=== PATIENT | female | born 1980 | race Caucasian/White ===

== ENCOUNTER → 2019-09-21 | Outpatient (CLI) | payer MEDICAID, SELFPAY ==
[~2019-09-21] MED LIST: ASPI-1497 PO; CALCIUM; FOLIC ACID; PREN1TAB78 PO
== END | disposition home or self-care (01) ==
LOC: LAB 15:07
PROVIDERS: ATTEND Obstetrics & Gynecology
DX: Z11.59 Encounter for screening for other viral diseases (principal); Z34.93 Encounter for supervision of normal pregnancy, unspecified, third trimester; Z3A.39 39 weeks gestation of pregnancy
CPT/HCPCS: C9803; U0003

== ENCOUNTER 2019-09-25 06:06 | Inpatient (IN) | payer MEDICAID ==
[~2019-09-25] VITALS: Ht 157.5 cm; Wt 72.1 kg
[2019-09-25] MEDS ORDERED: DEXT 5%/LR + PITOCIN 20UNITS/L 1,000 ML IV SCH (06:32)
[2019-09-25] MEDS ORDERED: METHYLERGONOVINE MALEATE 0.2 MG/ML IM PRN (06:45)
[2019-09-25] MEDS ORDERED: NALOXONE HCL 0.4 MG/ML 1ML VIAL IM PRN (06:45)
[2019-09-25] MEDS ORDERED: CARBOPROST TROMETHAMINE 250 MCG/ML AMPUL IM PRN (06:45)
[2019-09-25] MEDS ORDERED: MISOPROSTOL 200MCG TABLET VG SCH (07:00)
[2019-09-25] MEDS ORDERED: FOLIC ACID (07:00)
[2019-09-25] MEDS ORDERED: CALCIUM (07:00)
[2019-09-25] MEDS ORDERED: ASPI-1497 PO (07:00)
[2019-09-25] MEDS ORDERED: PREN1TAB78 PO (07:00)
[2019-09-25] MEDS ORDERED: CITRIC ACID/SODIUM CITRATE SOLN 30ML UDC PO SCH (07:00)
[2019-09-25] MEDS ORDERED: MORPHINE SULFATE/PF 1MG/ML 10ML AMP ONE (07:04)
[2019-09-25] MEDS ORDERED: ONDANSETRON HCL 4MG/2ML INJ ONE (07:04)
[2019-09-25] MEDS ORDERED: FENTANYL CITRATE/PF 50MCG/ML 2ML VIAL ONE (07:04)
[2019-09-25] MEDS ORDERED: CEFAZOLIN SODIUM 1000MG/VIAL ONE (07:04)
[2019-09-25] MEDS ORDERED: OXYTOCIN 10 UNITS/ML 1ML ONE ×2 (07:04→09:46)
[2019-09-25] MEDS: LACTATED RINGERS 1,000 ML IV SCH ×2 (07:06→07:14)
[2019-09-25 07:12] LABS: BASOPHILS % 0.5 % (0.0-2.0); EOSINOPHILS % 0.8 % (0.0-5.0); HEMATOCRIT. 39.8 % (36.0-48.0); HEMOGLOBIN. 14.1 g/dL (12.0-16.0); LYMPHOCYTES % 27.7 % (20.0-50.0); MEAN CORPUSCULAR HEMOGLOBIN 32.5 pg (28.0-32.0); MEAN CORPUSCULAR VOLUME 91.8 fL (81.0-99.0); MEAN PLATELET VOLUME 9.2 fl (7.4-10.4); MONOCYTES % 7.6 % (2.0-8.0); NEUTROPHILS % 63.4 % (40.0-76.0); PLATELET 186 x1000/uL (130-400); RED BLOOD CELL COUNT 4.34 mill/uL (4.2-5.4); RED CELL DISTRIBUTION WIDTH 13.3 % (11.6-14.6)
[2019-09-25 07:13] LABS: CLARITY URINE CLEAR (CLEAR); COLOR URINE YELLOW (YELLOW); KETONES URINE NEGATIVE (NEGATIVE); LEUKOCYTE ESTERASE URINE NEGATIVE (NEGATIVE); NITRITE URINE NEGATIVE (NEGATIVE); OCCULT BLOOD URINE NEGATIVE (NEGATIVE); PROTEIN URINE NEGATIVE (NEGATIVE); SPECIFIC GRAVITY URINE 1.016 (1.005-1.030); UROBILINOGEN URINE 0.2 E.U./dL (0.2-1.0)
[2019-09-25 07:16] LABS: INR 0.9; PARTIAL THROMBOPLASTIN TIME 28.9 sec (23.4-31.0); PROTHROMBIN TIME 9.9 sec (9.6-11.0)
[2019-09-25 07:37] LABS: *AMPHETAMINES SCREEN URINE NEGATIVE (NEGATIVE); *BARBITURATES SCREEN URINE NEGATIVE (NEGATIVE); *BENZODIAZEPINES SCREEN URINE NEGATIVE (NEGATIVE); *COCAINE SCREEN URINE NEGATIVE (NEGATIVE)
[2019-09-25 07:38] LABS: CANNABINOID URINE SCREEN NEGATIVE (NEGATIVE); METHADONE URINE SCREEN NEGATIVE (NEGATIVE); OPIATES URINE SCREEN NEGATIVE (NEGATIVE); PHENCYCLIDINE URINE SCREEN NEGATIVE (NEGATIVE)
[2019-09-25 08:07] LABS: HEPATITIS B SURFACE ANTIGEN NEGATIVE
[2019-09-25 08:59] LABS: PARTIAL THROMBOPLASTIN TIME 28.4 sec (23.4-31.0); PROTHROMBIN TIME 10.2 sec (9.6-11.0)
[2019-09-25] MEDS ORDERED: DEXT 5%/LACTATED RINGERS 1,000 ML IV SCH (09:07)
[2019-09-25] MEDS ORDERED: IBUPROFEN 400MG TABLET PO PRN (09:15)
[2019-09-25] MEDS ORDERED: BISACODYL 10MG SUPP PR PRN (09:15)
[2019-09-25] MEDS ORDERED: LANOLIN OINT 7GM TUBE TOP PRN (09:15)
[2019-09-25] MEDS ORDERED: DIPHENHYDRAMINE 25MG CAPSULE PO PRN (09:15)
[2019-09-25] MEDS ORDERED: HYDROCODONE/ACETAMINOPHEN 5/325MG TABLET PO PRN (09:15)
[2019-09-25] MEDS ORDERED: ONDANSETRON HCL 4MG/2ML INJ IV PRN (09:15)
[2019-09-25] MEDS ORDERED: HEMORRHOIDAL SUPP PR PRN (09:15)
[2019-09-25] MEDS ORDERED: DIPHENHYDRAMINE 50MG/ML VIAL ONE (09:55)
[2019-09-25] MEDS ORDERED: DIPHENHYDRAMINE 50MG/ML VIAL IV PRN (10:45)
[2019-09-25] MEDS ORDERED: NALOXONE HCL 0.4 MG/ML 1ML VIAL IV PRN (10:45)
[2019-09-25] MEDS ORDERED: BUTORPHANOL TARTRATE 2 MG/ML VIAL IV PRN (10:45)
[2019-09-25] MEDS: BUTORPHANOL TARTRATE 2 MG/ML VIAL IV PRN (12:02)
[2019-09-25 13:00] VITALS: BP 123/68
[2019-09-25] MEDS: SIMETHICONE 80MG TABLET CHEW PO SCH ×2 (13:00→18:00)
[2019-09-25 13:20] VITALS: BP 116/68
[2019-09-25 14:30] VITALS: BP 108/62
[2019-09-25] MEDS: DEXT 5%/LR + PITOCIN 20UNITS/L 1,000 ML IV SCH ×2 (15:52→23:37)
[2019-09-25 20:00] VITALS: BP 117/76
[2019-09-25] MEDS ORDERED: DOCUSATE SODIUM 100MG CAPSULE PO SCH (21:00)
[2019-09-26] VITALS: BP 115/71
[2019-09-26] MEDS: BUTORPHANOL TARTRATE 2 MG/ML VIAL IV PRN (03:19)
[2019-09-26 04:15] VITALS: BP 109/86
[2019-09-26 06:12] LABS: BASOPHILS % 0.4 % (0.0-2.0); EOSINOPHILS % 0.9 % (0.0-5.0); HEMATOCRIT. 34.9 % (36.0-48.0); HEMOGLOBIN. 12.3 g/dL (12.0-16.0); LYMPHOCYTES % 15.4 % (20.0-50.0); MEAN CORPUSCULAR HEMOGLOBIN 32.4 pg (28.0-32.0); MEAN CORPUSCULAR VOLUME 91.7 fL (81.0-99.0); MONOCYTES % 7.3 % (2.0-8.0); PLATELET 149 x1000/uL (130-400); RED BLOOD CELL COUNT 3.81 mill/uL (4.2-5.4); RED CELL DISTRIBUTION WIDTH 13.4 % (11.6-14.6)
[2019-09-26 08:00] VITALS: BP 108/55
[2019-09-26] MEDS ORDERED: DEXT 5%/LR + PITOCIN 20UNITS/L 1,000 ML IV SCH (08:36)
[2019-09-26] MEDS ORDERED: DEXT 5%/LACTATED RINGERS 1,000 ML IV SCH (08:36)
[2019-09-26] MEDS ORDERED: HYDROCODONE/ACETAMINOPHEN 5/325MG TABLET PO PRN (08:45)
[2019-09-26] MEDS ORDERED: BISACODYL 10MG SUPP PR PRN ×2 (08:45→23:15)
[2019-09-26] MEDS ORDERED: ONDANSETRON HCL 4MG/2ML INJ IV PRN (08:45)
[2019-09-26] MEDS ORDERED: HEMORRHOIDAL SUPP PR PRN (08:45)
[2019-09-26] MEDS ORDERED: IBUPROFEN 800MG TABLET PO PRN (08:45)
[2019-09-26] MEDS ORDERED: IBUPROFEN 400MG TABLET PO PRN (08:45)
[2019-09-26] MEDS ORDERED: LANOLIN OINT 7GM TUBE TOP PRN (08:45)
[2019-09-26] MEDS ORDERED: PRENATAL VIT/FE FUMARATE/FA TABLET PO SCH (09:00)
[2019-09-26] MEDS: PRENATAL VIT/FE FUMARATE/FA TABLET PO SCH (09:07)
[2019-09-26] MEDS: ACETAMINOPHEN WITH CODEINE 300/30MG TABLET PO PRN ×2 (09:07→21:00)
[2019-09-26] MEDS: FERROUS SULFATE 325MG TABLET PO SCH ×4 (09:07→21:00)
[2019-09-26] MEDS: SIMETHICONE 80MG TABLET CHEW PO SCH ×4 (09:08→21:00)
[2019-09-26] MEDS ORDERED: SIMETHICONE 80MG TABLET CHEW PO SCH (13:00)
[2019-09-26 16:00] VITALS: BP 110/67
[2019-09-26 20:20] VITALS: BP 119/74
[2019-09-26] MEDS ORDERED: DOCUSATE SODIUM 100MG CAPSULE PO SCH (21:00)
[2019-09-26] MEDS ORDERED: DIPHENHYDRAMINE 25MG CAPSULE PO PRN (21:00)
[2019-09-27 00:01] VITALS: BP 121/73
[2019-09-27] MEDS: ACETAMINOPHEN WITH CODEINE 300/30MG TABLET PO PRN ×2 (03:20→11:30)
[2019-09-27 03:30] VITALS: BP 124/72
[2019-09-27] MEDS ORDERED: FERROUS SULFATE 325MG TABLET PO SCH (07:30)
[2019-09-27] MEDS: PRENATAL VIT/FE FUMARATE/FA TABLET PO SCH (08:44)
[2019-09-27] MEDS: SIMETHICONE 80MG TABLET CHEW PO SCH (08:44)
[2019-09-27 11:11] VITALS: BP 115/78
[2019-09-27 12:00] VITALS: BP 107/63
== END 2019-09-27 15:05 | disposition home or self-care (01) | DRG 540 ==
LOC: 8 EST LDRP 06:06 → 8EST 13:26
PROVIDERS: ADMIT Obstetrics & Gynecology; ATTEND Obstetrics & Gynecology
PROC: 10D00Z1 Extraction of Products of Conception, Low, Open Approach (ICD-10-PCS; principal; 2019-09-25)
PROC: 0UB70ZZ Excision of Bilateral Fallopian Tubes, Open Approach (ICD-10-PCS; 2019-09-25)
DX: O34.211 Maternal care for low transverse scar from previous cesarean delivery (principal); O77.0 Labor and delivery complicated by meconium in amniotic fluid; Z3A.39 39 weeks gestation of pregnancy; Z30.2 Encounter for sterilization; Z37.0 Single live birth; O69.81X0 Labor and delivery complicated by cord around neck, without compression, not applicable or unspecified
CPT/HCPCS: 36415; 80305; 81003; 85025; 86592; 86703; 86762; 86850; 86900; 86920; 87340; 88302; 88307; J0595; J0690; J1200; J2274; J2405; J2590; J3010; J7120; J7121